=== PATIENT | male | born 1945 | race Caucasian/White ===

== ENCOUNTER 2017-01-19 10:39 | Outpatient (CLI) | payer MEDICARE ==
--- NOTE | 2017-01-19 15:16 | NM ---
WHOLE BODY BONE SCAN: Date: 01/19/17 COMPARISON: CT thoracic spine dated 01/13/17. HISTORY: Fractures of the thoracic spine after falling off a horse. TECHNIQUE: A whole body bone scan was performed after administration of 32 mCi technetium-99m MDP. FINDINGS: There is focal uptake of radiopharmaceutical in the spinous processes in the lower thoracic spine. T his likely represents a spinous process fracture seen on prior CT. No abnormal uptake is seen in the thoracic vertebral bodies to suggest compression fractures of the thoracic spine. There is uptake i n the lumbar spine which is greater along the posterior facets which likely represents degenerative change. Uptake in the shoulders, wrists, hands, and feet are likely secondary to degenerative change . Uptake in the maxilla and mandible is likely secondary to periodontal disease. Soft tissue activit y is unremarkable. IMPRESSION: Slightly more focal uptake in the spinous processes may represent acute fractures of the lower thora cic spine. There is no evidence of compression fracture of the vertebral bodies of the thoracic spin e. POS: [facility]
== END 2017-01-19 10:40 | disposition home or self-care (01) ==
LOC: NM 10:39
PROVIDERS: ATTEND Specialist
DX: S22.070A Wedge compression fracture of T9-T10 vertebra, initial encounter for closed fracture (principal)
CPT/HCPCS: 78306; A9503

== ENCOUNTER 2017-08-17 10:32 | Outpatient (CLI) | payer MEDICARE | END 2017-08-17 10:33 | disposition home or self-care (01) | LOC: BICRAD 10:32 | PROVIDERS: ATTEND Anesthesiology Pain Medicine | DX: M19.012 Primary osteoarthritis, left shoulder (principal) ==

== ENCOUNTER 2018-01-27 12:47 | Outpatient (CLI) | payer MEDICARE ==
--- NOTE | 2018-01-27 15:44 | CT ---
CT CERVICAL SPINE WITHOUT CONTRAST: Date: 01/27/18 HISTORY: Spinal stenosis. Neck pain with radiation down both arms. Loss of feeling in both hands. Previous mita gical spine surgery. FINDINGS: No craniocervical dissociation. Lateral masses of C1 and C2, as well as the facets, have appropriate articulation. Anterior fusion plate with transvertebral body screw at C4, C5, and C6. Disc prosthesis at C4-C5 and C5-C6. No lucency with regards to the fusion hardware. Cervical spine vertebral body height is maintained. No fracture. Straightening of normal cervical chin dosis. No prevertebral soft tissue swelling. Upper mediastinum and lung apices are unremarkable. C2-C3: Central disc bulge abuts the thecal sac. Mild central canal stenosis. Patent bilateral neural foramin a. C3-C4: Broad based disc osteophyte complex abuts the thecal sac. Mild central canal stenosis. Degenerative c hanges in bilateral uncovertebral joints results in moderate right and moderate left foraminal narrow ing. C4-C5: Broad based disc osteophyte complex abuts the thecal sac. Moderate central canal stenosis. Degenerati ve changes and bilateral uncovertebral joints result in moderate to severe right and moderate left fo raminal narrowing. C5-C6: Broad based disc osteophyte complex with a right paracentral component. Mild central canal stenosis. Degenerative changes in bilateral uncovertebral joints and right facet hypertrophy result in severe b ilateral foraminal narrowing. C6-C7: No high grade central canal stenosis or high grade foraminal narrowing. C7-T1: No high grade central canal stenosis or high grade foraminal narrowing. IMPRESSION: 1 Uncomplicated cervical fusion hardware as described above. 2. Varying degrees of central canal stenosis and foraminal narrowing as above. POS: [facility]
--- NOTE | 2018-01-27 15:56 | CT ---
CT OF LUMBAR SPINE WITHOUT CONTRAST 01/27/18 INDICATION: History of low back pain radiating to both legs with patient having trouble walking. COMPARISON: Prior CT of the lumbar spine dated 08/26/12. FINDINGS: There is worsening type III Modic end plate degenerative changes present at L2-3. There is vacuum dis c phenomenon at T12-L1 through L5-S1. Slight retrolisthesis of L4 on L5, T12 on L1 and L1 on L2 is st able. There are prominent vascular calcifications involving the abdominal aorta. Small exophytic hypodense lesions seen adjacent to the upper pole left kidney are stable in size but now with more peripheral c alcifications. These are subcentimeter in size. There is numerous gallstones seen within the gallblad aaliyah. There are scattered diverticula present. There is slight degenerative levoscoliosis of the lumbar spine. At L5-S1, there is a broad based disc osteophyte complex with severe right and moderate left facet serjio int degenerative change inducing at least severe bilateral osseous neural foraminal narrowing. This i s likely stable to the comparison exam. At L4-5, there is broad based disc osteophyte complex with facet hypertrophy and retrolisthesis of L4 on L5 inducing severe central anal narrowing which is stable. There is severe bilateral osseous neur al foraminal narrowing which is stable. At L3-4, there is a broad based disc osteophyte complex with facet hypertrophy likely inducing stable severe central canal narrowing at least mild bilateral neural foraminal narrowing. At L2-3, there is a broad based disc osteophyte complex and facet hypertrophy inducing at least sever e central canal narrowing that is stable. There is moderate to severe bilateral neural foraminal narr owing which appears stable. At L1-2, there is a broad based disc osteophyte complex with retrolisthesis and facet hypertrophy ind ucing stable moderate to severe central canal narrowing with at least severe bilateral neural foramin al narrowing. At T12-L1, there is a broad based disc osteophyte complex with mild retrolisthesis of T12-L1 likely i nducing at least mild central canal narrowing and at least moderate bilateral osseous neural foramina l narrowing. There are small locules of gas posterior to the T12-L1 level which may reflect changes o f a recent procedure. Recommend correlation. IMPRESSION: 1. Stable severe multilevel central canal and neural foraminal narrowing. 2. Small locules of gas seen in the posterior epidural space at T12-L1 may reflect sequela of re cent instrumentation or procedure. Recommend correlation. 3. No acute fracture or subluxation is evident. 4. Worsening Modic end plate degenerative changes at L2-3. 5. Stable retrolisthesis of L4 on L5, L1 on L2 and T12 on L1. POS: [facility]
== END 2018-01-27 12:48 | disposition home or self-care (01) ==
LOC: BICCT 12:47
PROVIDERS: ATTEND Anesthesiology Pain Medicine
DX: M48.062 Spinal stenosis, lumbar region with neurogenic claudication (principal); M54.12 Radiculopathy, cervical region; M47.816 Spondylosis without myelopathy or radiculopathy, lumbar region; M99.83 Other biomechanical lesions of lumbar region; M47.896 Other spondylosis, lumbar region; M43.15 Spondylolisthesis, thoracolumbar region; M99.81 Other biomechanical lesions of cervical region; M48.02 Spinal stenosis, cervical region; Z98.1 Arthrodesis status
CPT/HCPCS: 72125; 72131

== ENCOUNTER 2021-01-31 12:40 | Outpatient (CLI) | payer MEDICARE | END 2021-01-31 12:41 | disposition home or self-care (01) | LOC: BICCT 12:40 | PROVIDERS: ATTEND Radiology Radiation Oncology | DX: C32.0 Malignant neoplasm of glottis (principal); M47.812 Spondylosis without myelopathy or radiculopathy, cervical region; I25.10 Atherosclerotic heart disease of native coronary artery without angina pectoris; Z98.1 Arthrodesis status | CPT/HCPCS: 70491 ==

== ENCOUNTER 2023-09-10 20:14 | Inpatient (IN) | payer MEDICARE ==
[2023-09-10 20:56] LABS: #Basophils Less than 0.03 10x3/uL (0.0-0.2); %Lymphocytes 7.3 % (21.0-51.0); %Monocytes 5.2 % (0.0-10.0); %Neutrophils 85.7 % (42.0-75.0); Hematocrit 25.8 % (42.0-52.0); Hemoglobin 8.4 g/dL (14.0-18.0); Mean Corpuscular HGB CONC 32.6 g/dL (32.0-36.0); Mean Corpuscular Hemoglobin 31.3 pg (27.0-31.0); Mean Corpuscular Volume 96.3 fL (78.0-98.0); Mean Platelet Volume 10.9 fL (7.4-10.4); Platelet Count 139 10x3/uL (130-400); RBC Distribution Width 14.2 % (11.5-14.5); Red Blood Cell (RBC) Count 2.68 mill/uL (4.70-6.10)
[2023-09-10] MEDS ORDERED: Acetaminophen 650 MG Suppository ONE (20:59)
[2023-09-10] MEDS ORDERED: Acetaminophen 325 MG Suppository ONE (20:59)
[2023-09-10 21:14] LABS: ALT (SGPT) 16 U/L (8-55); AST (SGOT) 19 U/L (5-34); Albumin 3.3 g/dL (3.4-4.8); Alkaline Phosphatase 114 U/L (40-110); Anion Gap 16 mmol/L (10-20); BUN (Urea Nitrogen) 41 mg/dL (8.4-25.7); Bilirubin, Total 0.4 mg/dL (0.2-1.2); Calc. Creatinine Clearance 0 mL/min (70-130); Calcium 8.6 mg/dL (7.8-10.44); Carbon Dioxide 21 mmol/L (23-31); Chloride 105 mmol/L (98-107); Digoxin 0.73 ng/mL (0.8-2.0); Estimated GFR 34; Glucose 184 mg/dL (83-110); Magnesium 2.3 mg/dL (1.6-2.6); Potassium 4.9 mmol/L (3.5-5.1); Protein, Total 7.3 g/dL (5.8-8.1); Sodium 137 mmol/L (136-145)
[2023-09-10 21:18] LABS: Bilirubin Negative (Negative); Blood, Urine Trace (Negative); Clarity Clear (Clear); Glucose, Urine (Dipstick) >=1000 mg/dL (Negative); Ketone, Urine Negative (Negative); Leukocyte Negative (Negative); Nitrite Negative (Negative); Protein, Urine (Dipstick) Negative (Neg-Trace); Urobilinogen 0.2 mg/dL (Less than 2)
[2023-09-10 21:19] LABS: Bacteria/HPF None Seen HPF (None Seen); RBC/HPF None Seen HPF (0-3); Squamous Epithelial None Seen HPF (0-3); WBC/HPF None Seen HPF (0-3)
[2023-09-10 21:20] LABS: Specific Gravity, Urine 1.012 (1.002-1.036)
[2023-09-10 21:26] LABS: Amphetamine Not Detected (NotDetected); Barbiturates Screen Not Detected (NotDetected); Benzodiazepine Screen Not Detected (NotDetected); Cocaine Metabolite Screen Not Detected (NotDetected); Methadone Not Detected (NotDetected); Methamphetamine Not Detected (NotDetected); Opiate Screen Not Detected (NotDetected); Oxycodone Screen Not Detected (NotDetected); Phencyclidine (PCP) Not Detected (NotDetected); THC/Cannabinoid Screen Not Detected (NotDetected); Tricyclic Screen Not Detected (NotDetected)
[2023-09-10] MEDS ORDERED: Cefepime 2 GM VIAL ONE (21:52)
[2023-09-10] MEDS ORDERED: Ondansetron PF 4 MG/2 ML Vial IVP PRN (22:58)
[2023-09-10] MEDS ORDERED: Ondansetron ODT 4 MG TAB PO PRN (22:58)
[2023-09-10] MEDS ORDERED: Dextrose 5% in Water 1,000 ML IV PRN (23:07)
[2023-09-10] MEDS ORDERED: Glucagon 1 MG/ML KIT IM PRN (23:07)
[2023-09-10] MEDS ORDERED: Dextrose 50% Abboject 50 ML SYRINGE SLOW IVP PRN (23:07)
[2023-09-10] MEDS ORDERED: NOREPINEPHRINE 8 MG/250 ML-D5W 250 ML ONE (23:27)
[2023-09-11] MEDS ORDERED: Ipratropium/Albuterol 3 ML NEB NEB PRN (01:33)
[2023-09-11 01:55] VITALS: BMI 29.3
[2023-09-11] MEDS: Vancomycin (BATCH) 2 GM in Premix 1 BAG IVPB SCH (02:05)
[2023-09-11] MEDS: Lactated Ringer's 1,000 ML IV SCH ×2 (02:29→09:46)
[2023-09-11] MEDS: Vancomycin HCl 500 MG in Sodium Chloride 0.9% 100 ML IVPB SCH (03:00)
[2023-09-11] MEDS: Acetaminophen 325 MG TAB PO PRN (05:25)
[2023-09-11] MEDS: Acetaminophen 650 MG Suppository PR PRN (05:29)
[2023-09-11 06:26] LABS: #Basophils Less than 0.03 10x3/uL (0.0-0.2); %Basophils 0.1 % (0.0-1.0); %Eosinophils 0.6 % (0.0-10.0); %Lymphocytes 6.6 % (21.0-51.0); %Monocytes 7.4 % (0.0-10.0); %Neutrophils 84.4 % (42.0-75.0); Hematocrit 34.7 % (42.0-52.0); Hemoglobin 10.9 g/dL (14.0-18.0); Mean Corpuscular HGB CONC 31.4 g/dL (32.0-36.0); Mean Corpuscular Hemoglobin 30.9 pg (27.0-31.0); Mean Corpuscular Volume 98.3 fL (78.0-98.0); Mean Platelet Volume 10.5 fL (7.4-10.4); Platelet Count 181 10x3/uL (130-400); RBC Distribution Width 14.7 % (11.5-14.5); Red Blood Cell (RBC) Count 3.53 mill/uL (4.70-6.10)
[2023-09-11 06:37] LABS: ALT (SGPT) 18 U/L (8-55); AST (SGOT) 21 U/L (5-34); Albumin 3.1 g/dL (3.4-4.8); Alkaline Phosphatase 106 U/L (40-110); Anion Gap 18 mmol/L (10-20); BUN (Urea Nitrogen) 38 mg/dL (8.4-25.7); Bilirubin, Total 0.8 mg/dL (0.2-1.2); Calc. Creatinine Clearance 49 mL/min (70-130); Carbon Dioxide 21 mmol/L (23-31); Chloride 105 mmol/L (98-107); Estimated GFR 37; Globulin 3.7 g/dL (2.4-3.5); Glucose 186 mg/dL (83-110); Potassium 4.7 mmol/L (3.5-5.1); Protein, Total 6.8 g/dL (5.8-8.1); Sodium 139 mmol/L (136-145)
[2023-09-11] MEDS: Pantoprazole 40 MG VIAL IVP SCH (07:44)
[2023-09-11] MEDS: Heparin 5,000 UNITS/ML VIAL SC SCH (07:45)
[2023-09-11] MEDS: Cefepime 1 GM in Sodium Chloride 0.9% 100 ML IVPB SCH (07:46)
[2023-09-11] MEDS ORDERED: SODIUM CHLORIDE 0.9% IVPB SCH (09:00)
[2023-09-11] MEDS ORDERED: VANCOMYCIN IVPB SCH (09:00)
[2023-09-11] MEDS ORDERED: Cefepime 2 GM in Sodium Chloride 0.9% 100 ML IVPB SCH (09:00)
[2023-09-11 09:55] VITALS: BMI 29.3
[2023-09-11] MEDS: HumaLOG 300 UNITS/3 ML VIAL SC PRN (11:22)
[2023-09-11] MEDS: Pregabalin 75 MG CAP PO SCH (20:43)
[2023-09-11] MEDS: NOREPINEPHRINE 8 MG/250 ML-D5W 250 ML IVPB PRN (20:56)
[2023-09-11] MEDS ORDERED: Famotidine 20 MG TAB PO SCH (21:00)
[2023-09-11] MEDS: Vancomycin (BATCH) 1.25 GM in Premix 1 BAG IVPB SCH (21:14)
[2023-09-12] MEDS: Morphine 2 MG/ML VIAL SLOW IVP SCH (03:10)
[2023-09-12] MEDS: Metoprolol Tartrate 5 MG (5 mL) VIAL IVP SCH (03:11)
[2023-09-12] MEDS: Furosemide 40 MG (4 mL) VIAL SLOW IVP SCH (03:19)
[2023-09-12] MEDS: Metoprolol Tartrate 5 MG (5 mL) VIAL ONE (03:49)
[2023-09-12] MEDS: Furosemide 40 MG (4 mL) VIAL ONE (03:49)
[2023-09-12] MEDS: Amiodarone 450 MG in Dextrose 5% in Water 250 ML IVPB SCH (03:53)
[2023-09-12] MEDS: Amiodarone 150 MG, Admixture Fee 1 EACH in Dextrose 5% in Water 100 ML IVPB SCH (04:11)
[2023-09-12 05:26] LABS: #Basophils Less than 0.03 10x3/uL (0.0-0.2); %Basophils 0.1 % (0.0-1.0); %Eosinophils 0.8 % (0.0-10.0); %Lymphocytes 6.4 % (21.0-51.0); %Monocytes 4.2 % (0.0-10.0); Hematocrit 34.3 % (42.0-52.0); Mean Corpuscular HGB CONC 32.1 g/dL (32.0-36.0); Mean Corpuscular Hemoglobin 30.9 pg (27.0-31.0); Mean Corpuscular Volume 96.3 fL (78.0-98.0); Mean Platelet Volume 11.7 fL (7.4-10.4); Platelet Count 135 10x3/uL (130-400); RBC Distribution Width 14.9 % (11.5-14.5); Red Blood Cell (RBC) Count 3.56 mill/uL (4.70-6.10)
[2023-09-12 06:08] LABS: Vancomycin, Random 22.9 ug/mL (See Comment)
[2023-09-12 06:13] LABS: ALT (SGPT) 15 U/L (8-55); AST (SGOT) 19 U/L (5-34); Albumin 2.6 g/dL (3.4-4.8); Alkaline Phosphatase 131 U/L (40-110); Anion Gap 14 mmol/L (10-20); BUN (Urea Nitrogen) 29 mg/dL (8.4-25.7); Bilirubin, Total 0.9 mg/dL (0.2-1.2); Calc. Creatinine Clearance 56 mL/min (70-130); Calcium 9.1 mg/dL (7.8-10.44); Carbon Dioxide 24 mmol/L (23-31); Chloride 103 mmol/L (98-107); Estimated GFR 43; Globulin 4.1 g/dL (2.4-3.5); Glucose 221 mg/dL (83-110); Potassium 4.4 mmol/L (3.5-5.1); Protein, Total 6.7 g/dL (5.8-8.1); Sodium 137 mmol/L (136-145)
[2023-09-12] MEDS ORDERED: Carvedilol 3.125 MG TAB PO SCH (07:30)
[2023-09-12 08:43] LABS: Hemoglobin A1c 7.9 % (4.0-6.0)
[2023-09-12] MEDS ORDERED: Ranolazine ER 500 MG TAB PO SCH (09:00)
[2023-09-12] MEDS: rOPINIRole HCl 2 MG TAB PO SCH (09:48)
[2023-09-12] MEDS: Atorvastatin Calcium 40 MG TAB PO SCH (09:49)
[2023-09-12] MEDS: Allopurinol 100 MG TAB PO SCH (09:50)
[2023-09-12] MEDS: Empagliflozin 25 MG TAB PO SCH (09:51)
[2023-09-12] MEDS: Apixaban 2.5 MG TAB PO SCH (09:51)
[2023-09-12] MEDS: Aspirin 81 mg Enteric Coated Tablet PO SCH (09:51)
[2023-09-12] MEDS: Ezetimibe 10 MG TAB PO SCH (09:54)
[2023-09-12] MEDS ORDERED: Furosemide 40 MG (4 mL) VIAL SLOW IVP SCH (14:00)
[2023-09-12] MEDS: Finasteride 5 MG TAB PO SCH (20:44)
[2023-09-13 04:20] LABS: #Basophils Less than 0.03 10x3/uL (0.0-0.2); %Basophils 0.1 % (0.0-1.0); %Eosinophils 1.6 % (0.0-10.0); %Lymphocytes 7.3 % (21.0-51.0); %Monocytes 7.3 % (0.0-10.0); %Neutrophils 82.7 % (42.0-75.0); Hematocrit 30.1 % (42.0-52.0); Hemoglobin 9.8 g/dL (14.0-18.0); Mean Corpuscular HGB CONC 32.6 g/dL (32.0-36.0); Mean Corpuscular Hemoglobin 30.4 pg (27.0-31.0); Mean Corpuscular Volume 93.5 fL (78.0-98.0); Mean Platelet Volume 10.7 fL (7.4-10.4); Platelet Count 136 10x3/uL (130-400); RBC Distribution Width 14.8 % (11.5-14.5); Red Blood Cell (RBC) Count 3.22 mill/uL (4.70-6.10)
[2023-09-13 05:03] LABS: ALT (SGPT) 13 U/L (8-55); AST (SGOT) 14 U/L (5-34); Albumin 2.2 g/dL (3.4-4.8); Alkaline Phosphatase 93 U/L (40-110); Anion Gap 11 mmol/L (10-20); BUN (Urea Nitrogen) 25 mg/dL (8.4-25.7); Bilirubin, Total 0.8 mg/dL (0.2-1.2); Calc. Creatinine Clearance 70 mL/min (70-130); Calcium 8.7 mg/dL (7.8-10.44); Carbon Dioxide 25 mmol/L (23-31); Chloride 106 mmol/L (98-107); Estimated GFR 57; Globulin 3.9 g/dL (2.4-3.5); Glucose 194 mg/dL (83-110); Potassium 4.4 mmol/L (3.5-5.1); Protein, Total 6.1 g/dL (5.8-8.1); Sodium 138 mmol/L (136-145)
[2023-09-13] MEDS: Empagliflozin 25 MG TAB PO SCH (08:17)
[2023-09-13] MEDS: Furosemide 20 MG TAB PO SCH (08:25)
[2023-09-13] MEDS: Magnesium Sulfate 3 GM in Sodium Chloride 0.9% 100 ML IVPB SCH (09:26)
[2023-09-13] MEDS: Furosemide 20 MG (2 mL) VIAL SLOW IVP SCH (09:27)
[2023-09-13] MEDS: Amiodarone 200 MG TAB PO SCH (09:27)
[2023-09-13] MEDS: Potassium Chloride 10 MEQ TAB PO SCH (17:50)
[2023-09-13] MEDS: Vancomycin (BATCH) 1.5 GM in Premix 1 BAG IVPB SCH (21:52)
[2023-09-14 05:21] LABS: #Basophils Less than 0.03 10x3/uL (0.0-0.2); %Basophils 0.1 % (0.0-1.0); %Eosinophils 2.6 % (0.0-10.0); %Lymphocytes 12.1 % (21.0-51.0); %Monocytes 7.8 % (0.0-10.0); %Neutrophils 75.7 % (42.0-75.0); Hematocrit 22.9 % (42.0-52.0); Hemoglobin 7.4 g/dL (14.0-18.0); Mean Corpuscular HGB CONC 32.3 g/dL (32.0-36.0); Mean Corpuscular Hemoglobin 30.2 pg (27.0-31.0); Mean Corpuscular Volume 93.5 fL (78.0-98.0); Mean Platelet Volume 11.1 fL (7.4-10.4); Platelet Count 122 10x3/uL (130-400); RBC Distribution Width 14.7 % (11.5-14.5); Red Blood Cell (RBC) Count 2.45 mill/uL (4.70-6.10)
[2023-09-14 05:46] LABS: Vancomycin, Random 26.8 ug/mL (See Comment)
[2023-09-14 05:49] LABS: ALT (SGPT) 11 U/L (8-55); AST (SGOT) 15 U/L (5-34); Albumin 2.2 g/dL (3.4-4.8); Alkaline Phosphatase 88 U/L (40-110); Anion Gap 10 mmol/L (10-20); BUN (Urea Nitrogen) 26 mg/dL (8.4-25.7); Bilirubin, Total 0.8 mg/dL (0.2-1.2); Calc. Creatinine Clearance 69 mL/min (70-130); Calcium 8.9 mg/dL (7.8-10.44); Carbon Dioxide 30 mmol/L (23-31); Chloride 103 mmol/L (98-107); Estimated GFR 61; Globulin 3.8 g/dL (2.4-3.5); Glucose 167 mg/dL (83-110); Magnesium 2.5 mg/dL (1.6-2.6); Potassium 4.1 mmol/L (3.5-5.1); Sodium 139 mmol/L (136-145)
[2023-09-14 07:54] LABS: Hematocrit 27.3 % (42.0-52.0); Hemoglobin 8.9 g/dL (14.0-18.0); Mean Corpuscular HGB CONC 32.6 g/dL (32.0-36.0); Mean Corpuscular Volume 91.9 fL (78.0-98.0); Platelet Count 125 10x3/uL (130-400); RBC Distribution Width 14.7 % (11.5-14.5); Red Blood Cell (RBC) Count 2.97 mill/uL (4.70-6.10)
[2023-09-14] MEDS: Furosemide 20 MG TAB PO SCH (09:19)
[2023-09-14] MEDS: Pantoprazole DR 40 MG TAB PO SCH (09:19)
[2023-09-15 05:01] LABS: %Neutrophils 68.4 % (42.0-75.0); Hematocrit 25.8 % (42.0-52.0); Hemoglobin 8.5 g/dL (14.0-18.0); Mean Corpuscular HGB CONC 32.9 g/dL (32.0-36.0); Mean Corpuscular Hemoglobin 30.9 pg (27.0-31.0); Mean Corpuscular Volume 93.8 fL (78.0-98.0); Mean Platelet Volume 11.2 fL (7.4-10.4); Platelet Count 121 10x3/uL (130-400); RBC Distribution Width 14.7 % (11.5-14.5); Red Blood Cell (RBC) Count 2.75 mill/uL (4.70-6.10)
[2023-09-15 05:02] LABS: #Basophils Less than 0.03 10x3/uL (0.0-0.2); %Basophils 0.2 % (0.0-1.0); %Eosinophils 2.1 % (0.0-10.0); %Lymphocytes 18.5 % (21.0-51.0); %Monocytes 10.4 % (0.0-10.0)
[2023-09-15 05:40] LABS: ALT (SGPT) 16 U/L (8-55); AST (SGOT) 19 U/L (5-34); Albumin 2.4 g/dL (3.4-4.8); Alkaline Phosphatase 106 U/L (40-110); Anion Gap 14 mmol/L (10-20); BUN (Urea Nitrogen) 30 mg/dL (8.4-25.7); Bilirubin, Total 0.6 mg/dL (0.2-1.2); Calc. Creatinine Clearance 63 mL/min (70-130); Calcium 8.7 mg/dL (7.8-10.44); Carbon Dioxide 29 mmol/L (23-31); Chloride 103 mmol/L (98-107); Estimated GFR 53; Globulin 3.9 g/dL (2.4-3.5); Glucose 172 mg/dL (83-110); Potassium 3.9 mmol/L (3.5-5.1); Protein, Total 6.3 g/dL (5.8-8.1); Sodium 142 mmol/L (136-145)
[2023-09-15] MEDS: Apixaban 5 MG TAB PO SCH (10:16)
[2023-09-15] MEDS: Furosemide 40 MG (4 mL) VIAL SLOW IVP SCH (10:17)
[2023-09-15] MEDS ORDERED: Norepinephrine 4 MG/4 ML VIAL ONE (14:30)
[2023-09-15] MEDS ORDERED: Ketamine In 0.9 % NaCl 50 MG/5 ML SYRINGE ONE (14:30)
[2023-09-15] MEDS ORDERED: PROPOFOL 200 MG/20 ML VIAL ONE (15:00)
[2023-09-15] MEDS: Potassium Chloride 10 MEQ TAB PO SCH (16:48)
[2023-09-16 04:17] LABS: #Basophils Less than 0.03 10x3/uL (0.0-0.2); %Basophils 0.1 % (0.0-1.0); %Eosinophils 1.3 % (0.0-10.0); %Lymphocytes 13.7 % (21.0-51.0); %Monocytes 8.4 % (0.0-10.0); %Neutrophils 75.5 % (42.0-75.0); Hematocrit 26.7 % (42.0-52.0); Hemoglobin 8.7 g/dL (14.0-18.0); Mean Corpuscular HGB CONC 32.6 g/dL (32.0-36.0); Mean Corpuscular Hemoglobin 30.2 pg (27.0-31.0); Mean Corpuscular Volume 92.7 fL (78.0-98.0); Mean Platelet Volume 11.5 fL (7.4-10.4); Platelet Count 152 10x3/uL (130-400); RBC Distribution Width 14.5 % (11.5-14.5); Red Blood Cell (RBC) Count 2.88 mill/uL (4.70-6.10)
[2023-09-16 04:43] LABS: ALT (SGPT) 19 U/L (8-55); AST (SGOT) 23 U/L (5-34); Albumin 2.5 g/dL (3.4-4.8); Alkaline Phosphatase 121 U/L (40-110); Anion Gap 17 mmol/L (10-20); BUN (Urea Nitrogen) 31 mg/dL (8.4-25.7); Bilirubin, Total 0.7 mg/dL (0.2-1.2); Calc. Creatinine Clearance 74 mL/min (70-130); Calcium 8.7 mg/dL (7.8-10.44); Carbon Dioxide 25 mmol/L (23-31); Chloride 104 mmol/L (98-107); Estimated GFR 65; Globulin 3.7 g/dL (2.4-3.5); Glucose 155 mg/dL (83-110); Potassium 4.2 mmol/L (3.5-5.1); Protein, Total 6.2 g/dL (5.8-8.1); Sodium 142 mmol/L (136-145)
[2023-09-16 04:49] LABS: Vancomycin, Random 102.6 ug/mL (See Comment)
[2023-09-16] MEDS ORDERED: HumaLOG 300 UNITS/3 ML VIAL SC PRN (10:28)
[2023-09-16] MEDS: rOPINIRole HCl 2 MG TAB PO SCH (11:49)
[2023-09-16 13:45] LABS: Vancomycin, Random 26.1 ug/mL (See Comment)
[2023-09-16] MEDS: Sacubitril 24MG/Valsartan 26 MG TAB PO SCH (21:40)
[2023-09-17 04:38] LABS: #Basophils Less than 0.03 10x3/uL (0.0-0.2); %Basophils 0.1 % (0.0-1.0); %Eosinophils 1.2 % (0.0-10.0); %Lymphocytes 12.3 % (21.0-51.0); %Neutrophils 76.3 % (42.0-75.0); Hematocrit 27.1 % (42.0-52.0); Hemoglobin 8.9 g/dL (14.0-18.0); Mean Corpuscular HGB CONC 32.8 g/dL (32.0-36.0); Mean Corpuscular Volume 94.4 fL (78.0-98.0); Mean Platelet Volume 11.2 fL (7.4-10.4); Platelet Count 165 10x3/uL (130-400); RBC Distribution Width 14.7 % (11.5-14.5); Red Blood Cell (RBC) Count 2.87 mill/uL (4.70-6.10)
[2023-09-17 05:16] LABS: ALT (SGPT) 19 U/L (8-55); AST (SGOT) 20 U/L (5-34); Albumin 2.7 g/dL (3.4-4.8); Alkaline Phosphatase 127 U/L (40-110); Anion Gap 15 mmol/L (10-20); BUN (Urea Nitrogen) 31 mg/dL (8.4-25.7); Bilirubin, Total 0.7 mg/dL (0.2-1.2); Calc. Creatinine Clearance 63 mL/min (70-130); Calcium 9.2 mg/dL (7.8-10.44); Carbon Dioxide 26 mmol/L (23-31); Chloride 103 mmol/L (98-107); Estimated GFR 55; Globulin 3.8 g/dL (2.4-3.5); Glucose 174 mg/dL (83-110); Potassium 4.1 mmol/L (3.5-5.1); Protein, Total 6.5 g/dL (5.8-8.1); Sodium 140 mmol/L (136-145)
[2023-09-17 05:18] LABS: Vancomycin, Random 34.2 ug/mL (See Comment)
[2023-09-17] MEDS: Potassium Chloride 20 MEQ TAB PO SCH (11:33)
[2023-09-17] MEDS: Carvedilol 3.125 MG TAB PO SCH (11:34)
[2023-09-17 22:42] VITALS: BP 121/62; TEMP 97.8
[2023-09-18] MEDS ORDERED: Vancomycin HCl 750 MG in Sodium Chloride 0.9% 250 ML 250 ML IVPB SCH (13:00)
== END 2023-09-18 02:35 | disposition short-term general hospital (02) | DRG 314 ==
LOC: ERS 20:14 → CCU 23:56 → 2NO 09-15 21:57
PROVIDERS: ADMIT Family Medicine; ATTEND Family Medicine
PROC: B246ZZ4 Ultrasonography of Right and Left Heart, Transesophageal (ICD-10-PCS; principal; 2023-09-15)
DX: T82.7XXA Infection and inflammatory reaction due to other cardiac and vascular devices, implants and grafts, initial encounter (principal); A41.02 Sepsis due to Methicillin resistant Staphylococcus aureus; I50.23 Acute on chronic systolic (congestive) heart failure; R65.21 Severe sepsis with septic shock; J96.01 Acute respiratory failure with hypoxia; I33.0 Acute and subacute infective endocarditis; N17.9 Acute kidney failure, unspecified; M86.8X7 Other osteomyelitis, ankle and foot; I13.0 Hypertensive heart and chronic kidney disease with heart failure and stage 1 through stage 4 chronic kidney disease, or unspecified chronic kidney disease; I48.92 Unspecified atrial flutter; C64.9 Malignant neoplasm of unspecified kidney, except renal pelvis; E11.22 Type 2 diabetes mellitus with diabetic chronic kidney disease; N18.30 Chronic kidney disease, stage 3 unspecified; I25.10 Atherosclerotic heart disease of native coronary artery without angina pectoris; E11.51 Type 2 diabetes mellitus with diabetic peripheral angiopathy without gangrene; E78.5 Hyperlipidemia, unspecified; K21.9 Gastro-esophageal reflux disease without esophagitis; D63.1 Anemia in chronic kidney disease; M19.90 Unspecified osteoarthritis, unspecified site; Z96.643 Presence of artificial hip joint, bilateral; I48.0 Paroxysmal atrial fibrillation; N40.0 Benign prostatic hyperplasia without lower urinary tract symptoms; M48.00 Spinal stenosis, site unspecified; I25.5 Ischemic cardiomyopathy; Y83.8 Other surgical procedures as the cause of abnormal reaction of the patient, or of later complication, without mention of misadventure at the time of the procedure; Z85.21 Personal history of malignant neoplasm of larynx; Z87.11 Personal history of peptic ulcer disease; Z79.01 Long term (current) use of anticoagulants; Z95.1 Presence of aortocoronary bypass graft; Z87.891 Personal history of nicotine dependence
CPT/HCPCS: 36415; 36416; 36556; 71045; 80053; 80162; 80202; 80306; 81001; 82140; 82533; 83036; 83605; 83735; 83880; 84145; 85025; 86141; 87040; 87070; 87077; 87086; 87149; 87186; 87205; 93005; 93010; 93306; 93312; 94660; 96361; 96365; 96367; 96375; 97139; C9113; J0282; J0692; J1644; J1815; J1940; J2272; J2704; J3370; J3475; J3490; J7070; J7120

== ENCOUNTER 2023-12-25 12:48 | Outpatient (CLI) | payer MEDICARE | END 2023-12-25 12:49 | disposition home or self-care (01) | LOC: CT 12:48 | PROVIDERS: ATTEND Radiology Radiation Oncology | DX: C64.1 Malignant neoplasm of right kidney, except renal pelvis (principal); C32.9 Malignant neoplasm of larynx, unspecified | CPT/HCPCS: 82565 ==

== ENCOUNTER 2024-03-28 12:51 | Outpatient (CLI) | payer MEDICARE | END 2024-03-28 12:52 | disposition home or self-care (01) | LOC: CT 12:51 | PROVIDERS: ATTEND Radiology Radiation Oncology | DX: C64.1 Malignant neoplasm of right kidney, except renal pelvis (principal); N28.89 Other specified disorders of kidney and ureter; K80.20 Calculus of gallbladder without cholecystitis without obstruction; N26.1 Atrophy of kidney (terminal); K57.30 Diverticulosis of large intestine without perforation or abscess without bleeding; I70.90 Unspecified atherosclerosis | CPT/HCPCS: 74150 ==

== ENCOUNTER 2024-04-22 14:14 | Inpatient (IN) | payer MEDICARE ==
[2024-04-22 16:55] VITALS: BMI 29.2
[2024-04-22] MEDS ORDERED: Dextrose 5% in Water 1,000 ML IV PRN (17:15)
[2024-04-22] MEDS ORDERED: Dextrose 50% Abboject 50 ML SYRINGE SLOW IVP PRN (17:15)
[2024-04-22] MEDS ORDERED: Glucagon 1 MG/ML KIT IM PRN (17:15)
[2024-04-22] MEDS ORDERED: Acetaminophen 650 MG Suppository PR PRN (18:03)
[2024-04-22] MEDS ORDERED: Vancomycin Dose by Levels Sliding Scale (Wt 71-99) FS SCH (18:15)
[2024-04-22] MEDS: Lactated Ringer's 1,000 ML IV SCH (18:33)
[2024-04-22] MEDS: Vancomycin 1 GM in Premix 1 BAG IVPB SCH (18:36)
[2024-04-22] MEDS: Cefepime 1 GM in Sodium Chloride 0.9% 100 ML IVPB SCH (20:43)
[2024-04-22] MEDS: rOPINIRole HCl 2 MG TAB PO SCH (20:47)
[2024-04-22] MEDS: Amiodarone 200 MG TAB PO SCH (20:48)
[2024-04-22] MEDS: Famotidine 20 MG TAB PO SCH (20:48)
[2024-04-22] MEDS: Furosemide 20 MG TAB PO SCH (20:48)
[2024-04-22] MEDS: Sacubitril 24MG/Valsartan 26 MG TAB PO SCH (20:48)
[2024-04-22] MEDS: Finasteride 5 MG TAB PO SCH (20:49)
[2024-04-22] MEDS: Pregabalin 75 MG CAP PO SCH (20:50)
[2024-04-22] MEDS: Ranolazine ER 500 MG TAB PO SCH (20:50)
[2024-04-22] MEDS: Insulin Lispro 100 UNIT/ML 10 ML VIAL SC PRN (20:51)
[2024-04-22] MEDS ORDERED: Apixaban 5 MG TAB PO SCH (21:00)
[2024-04-23 06:19] LABS: #Basophils Less than 0.03 10x3/uL (0.0-0.2); %Basophils 0.1 % (0.0-1.0); %Eosinophils 0.4 % (0.0-10.0); %Lymphocytes 15.9 % (21.0-51.0); %Monocytes 10.4 % (0.0-10.0); %Neutrophils 72.8 % (42.0-75.0); Hematocrit 33.8 % (42.0-52.0); Hemoglobin 10.7 g/dL (14.0-18.0); Mean Corpuscular HGB CONC 31.7 g/dL (32.0-36.0); Mean Corpuscular Hemoglobin 29.7 pg (27.0-31.0); Mean Corpuscular Volume 93.9 fL (78.0-98.0); Mean Platelet Volume 12.2 fL (7.4-10.4); Platelet Count 121 10x3/uL (130-400); RBC Distribution Width 14.8 % (11.5-14.5)
[2024-04-23 06:20] LABS: ALT (SGPT) 30 U/L (8-55); AST (SGOT) 31 U/L (5-34); Albumin 3.2 g/dL (3.4-4.8); Alkaline Phosphatase 113 U/L (40-110); Anion Gap 15 mmol/L (10-20); BUN (Urea Nitrogen) 45 mg/dL (8.4-25.7); Bilirubin, Total 0.4 mg/dL (0.2-1.2); Calc. Creatinine Clearance 49 mL/min (70-130); Calcium 9.3 mg/dL (7.8-10.44); Carbon Dioxide 26 mmol/L (23-31); Chloride 105 mmol/L (98-107); Estimated GFR 40; Globulin 4.2 g/dL (2.4-3.5); Glucose 185 mg/dL (83-110); Protein, Total 7.4 g/dL (5.8-8.1); Sodium 141 mmol/L (136-145)
[2024-04-23] MEDS ORDERED: Famotidine/PF 20 mg/2ml Vial ONE (09:38)
[2024-04-23] MEDS ORDERED: Etomidate 40 MG (20 mL) VIAL ONE (09:39)
[2024-04-23] MEDS ORDERED: Cefepime 1 GM VIAL ONE (09:47)
[2024-04-23] MEDS: Aspirin 81 mg Enteric Coated Tablet PO SCH (09:51)
[2024-04-23] MEDS: Atorvastatin Calcium 40 MG TAB PO SCH (09:51)
[2024-04-23] MEDS: Allopurinol 100 MG TAB PO SCH (09:51)
[2024-04-23] MEDS: Empagliflozin 25 MG TAB PO SCH (09:51)
[2024-04-23] MEDS: Ezetimibe 10 MG TAB PO SCH (09:51)
[2024-04-23] MEDS ORDERED: PROPOFOL 20 ML ONE (09:59)
[2024-04-23] MEDS ORDERED: fentaNYL 50 mcg/mL 1 mL Vial SLOW IVP PRN ×2 (10:05)
[2024-04-23] MEDS ORDERED: traMADol HCl 50 MG TAB PO PRN ×2 (10:05)
[2024-04-23] MEDS: Furosemide 40 MG TAB PO SCH (11:18)
[2024-04-23 11:52] LABS: Vancomycin, Trough 11.9 ug/mL
[2024-04-23] MEDS ORDERED: Vancomycin 1 GM in Premix 1 BAG IVPB SCH (12:00)
[2024-04-23] MEDS: VANCOMYCIN 1.25 GM/250 ML BAG 1.25 GM in Premix 1 BAG IVPB SCH (14:23)
[2024-04-23] MEDS: Insulin Lispro 100 UNIT/ML 10 ML VIAL SC PRN (18:13)
[2024-04-23] MEDS: Cefepime 2 GM in Sodium Chloride 0.9% 100 ML IVPB SCH (20:52)
[2024-04-24 06:08] LABS: Vancomycin, Random 17.7 ug/mL (See Comment)
[2024-04-24 07:01] LABS: #Basophils Less than 0.03 10x3/uL (0.0-0.2); #Eosinophils Less than 0.03 10x3/uL (0.0-0.7); %Basophils 0.2 % (0.0-1.0); %Eosinophils 0.2 % (0.0-10.0); %Lymphocytes 16.4 % (21.0-51.0); %Monocytes 10.7 % (0.0-10.0); %Neutrophils 72.2 % (42.0-75.0); Hematocrit 32.2 % (42.0-52.0); Hemoglobin 10.6 g/dL (14.0-18.0); Mean Corpuscular HGB CONC 32.9 g/dL (32.0-36.0); Mean Corpuscular Hemoglobin 29.9 pg (27.0-31.0); Mean Corpuscular Volume 90.7 fL (78.0-98.0); Mean Platelet Volume 10.8 fL (7.4-10.4); Platelet Count 123 10x3/uL (130-400); RBC Distribution Width 14.8 % (11.5-14.5); Red Blood Cell (RBC) Count 3.55 mill/uL (4.70-6.10)
[2024-04-24 07:25] LABS: Anion Gap 15 mmol/L (10-20); BUN (Urea Nitrogen) 36 mg/dL (8.4-25.7); Calc. Creatinine Clearance 59 mL/min (70-130); Calcium 9.2 mg/dL (7.8-10.44); Carbon Dioxide 23 mmol/L (23-31); Chloride 106 mmol/L (98-107); Estimated GFR 49; Glucose 165 mg/dL (83-110); Potassium 4.7 mmol/L (3.5-5.1); Sodium 139 mmol/L (136-145)
[2024-04-24] MEDS ORDERED: Vancomycin HCl 750 MG in Sodium Chloride 0.9% 250 ML 250 ML IVPB SCH (09:00)
[2024-04-24] MEDS ORDERED: FLU (Fluad Triv) TS24-25 (65UP)/MF59C/PF 45 MCG/0.5 ML Syringe IM ONE (09:00)
[2024-04-24 12:05] VITALS: BMI 29.2
[2024-04-25 09:55] LABS: #Basophils Less than 0.03 10x3/uL (0.0-0.2); #Eosinophils Less than 0.03 10x3/uL (0.0-0.7); %Basophils 0.2 % (0.0-1.0); %Eosinophils 0.2 % (0.0-10.0); %Lymphocytes 16.1 % (21.0-51.0); %Monocytes 11.4 % (0.0-10.0); %Neutrophils 71.7 % (42.0-75.0); Hematocrit 30.6 % (42.0-52.0); Mean Corpuscular HGB CONC 32.7 g/dL (32.0-36.0); Mean Corpuscular Hemoglobin 30.1 pg (27.0-31.0); Mean Corpuscular Volume 92.2 fL (78.0-98.0); Platelet Count 138 10x3/uL (130-400); RBC Distribution Width 14.8 % (11.5-14.5); Red Blood Cell (RBC) Count 3.32 mill/uL (4.70-6.10)
[2024-04-25] MEDS: Doxycycline 100 MG CAP PO SCH (10:06)
[2024-04-25 10:28] LABS: Anion Gap 15 mmol/L (10-20); BUN (Urea Nitrogen) 41 mg/dL (8.4-25.7); Calc. Creatinine Clearance 50 mL/min (70-130); Calcium 9.1 mg/dL (7.8-10.44); Carbon Dioxide 24 mmol/L (23-31); Chloride 105 mmol/L (98-107); Estimated GFR 41; Glucose 204 mg/dL (83-110); Potassium 4.6 mmol/L (3.5-5.1); Sodium 139 mmol/L (136-145)
[2024-04-25] MEDS: Cephalexin 250 MG CAP PO SCH (11:05)
[2024-04-25 11:51] VITALS: TEMP 97.8
[2024-04-25 17:11] VITALS: BP 103/54
== END 2024-04-25 16:20 | disposition home or self-care (01) | DRG 617 ==
LOC: T4-A 15:22 → 2NO 22:34
PROVIDERS: ADMIT Family Medicine; ATTEND Family Medicine
PROC: 0Y6P0Z3 Detachment at Right 1st Toe, Low, Open Approach (ICD-10-PCS; principal; 2024-04-23)
PROC: 0Y6N0ZB Detachment at Left Foot, Partial 2nd Ray, Open Approach (ICD-10-PCS; 2024-04-23)
DX: E11.69 Type 2 diabetes mellitus with other specified complication (principal); E11.52 Type 2 diabetes mellitus with diabetic peripheral angiopathy with gangrene; I50.22 Chronic systolic (congestive) heart failure; M86.9 Osteomyelitis, unspecified; I96 Gangrene, not elsewhere classified; N17.9 Acute kidney failure, unspecified; I25.10 Atherosclerotic heart disease of native coronary artery without angina pectoris; E11.22 Type 2 diabetes mellitus with diabetic chronic kidney disease; N18.30 Chronic kidney disease, stage 3 unspecified; N40.0 Benign prostatic hyperplasia without lower urinary tract symptoms; M19.90 Unspecified osteoarthritis, unspecified site; E87.5 Hyperkalemia; Z95.1 Presence of aortocoronary bypass graft; Z88.0 Allergy status to penicillin; Z79.01 Long term (current) use of anticoagulants; Z79.899 Other long term (current) drug therapy; Z87.891 Personal history of nicotine dependence; Z98.890 Other specified postprocedural states; I48.0 Paroxysmal atrial fibrillation
CPT/HCPCS: 36415; 36416; 80048; 80053; 80202; 82565; 85025; 86141; 87070; 87076; 87077; 87186; 87205; 88305; 88311; 97139; J0692; J1815; J2704; J3370; J3490; J7120